=== PATIENT | female | born 1975 | race African-American/Black ===

== ENCOUNTER 2018-12-17 08:20 | Emergency (ER) | payer MEDICAID ==
[~2018-12-17] VITALS: Ht 152.4 cm; Wt 61.0 kg
[2018-12-17] MEDS ORDERED: KETOROLAC 60MG/2ML VIAL IM ONE (09:45)
[2018-12-17] MEDS ORDERED: MORPHINE SULFATE 4 MG/ML CPJ (NOT FOR IM USE) IV ONE (09:45)
[2018-12-17] MEDS: METHOCARBAMOL 750MG TABLET PO SCH ×2 (10:33→10:38)
[2018-12-17 10:51] VITALS: BP 125/85
== END 2018-12-17 10:52 | disposition home or self-care (01) ==
LOC: ER 08:20
DX: M79.601 Pain in right arm (principal)
CPT/HCPCS: 96372; 96374; 99283; J1885; J2270

== ENCOUNTER 2019-10-23 10:15 | Emergency (ER) | payer MEDICAID ==
[~2019-10-23] VITALS: Ht 167.6 cm; Wt 64.0 kg
[2019-10-23 10:30] VITALS: BP 130/89
[2019-10-23] MEDS ORDERED: FAMOTIDINE 20MG TABLET PO ONE (11:45)
[2019-10-23] MEDS ORDERED: LORATADINE 10MG TABLET PO SCH (11:45)
[2019-10-23] MEDS ORDERED: DIPHENHYDRAMINE 50MG CAPSULE PO ONE (11:45)
[2019-10-23] MEDS ORDERED: PREDNISONE 20MG TABLET PO ONE (11:45)
== END 2019-10-23 12:18 | disposition home or self-care (01) ==
LOC: ER 10:15
DX: T78.40XA Allergy, unspecified, initial encounter (principal); X58.XXXA Exposure to other specified factors, initial encounter
CPT/HCPCS: 99284; J7512; Q0163

== ENCOUNTER 2023-06-28 15:24 | Emergency (ER) | payer MEDICAID ==
[~2023-06-28] VITALS: Ht 157.5 cm; Wt 77.0 kg
[2023-06-28 15:47] VITALS: O2SAT 96
[2023-06-28] MEDS ORDERED: TOPUD MT (17:31)
[2023-06-28] MEDS ORDERED: NAPR375T5 MT (17:31)
[2023-06-28 17:52] VITALS: BP 146/97; PULSE 89; RESP 18; TEMP 98.6
== END 2023-06-28 18:19 | disposition home or self-care (01) ==
LOC: ER 15:24
DX: M79.674 Pain in right toe(s) (principal)
CPT/HCPCS: 73630; 99283; Z7610